=== PATIENT | male | born 1955 | race Caucasian/White ===

== ENCOUNTER 2019-11-30 15:16 | Emergency (ER) | payer MEDICARE, MEDICAID ==
--- NOTE | 2019-11-30 15:28 | EDM.PDOC ---
ED HPI GENERAL MEDICAL PROBLEM - General Chief Complaint: Lower Extremity Injury/Pain Stated Complaint: RIGHT ANKLE INJURY Time Seen by Provider: 11/30/19 15:18 Source of Information: Reports: Patient History Limitations: Reports: No Limitations - History of Present Illness INITIAL COMMENTS - FREE TEXT/NARRATIVE: HISTORY AND PHYSICAL: History of present illness: Patient is a 64-year-old male who presents to the emergency room with complaints of right ankle pain. The states that he was attempting to walk up a stair when his toe caught, causing his ankle to roll and stepped wrong. He has pain to both the medial and lateral ankle. Denies hitting his head or having any loss of consciousness. Denies any other extremity involved. Offers no systemic complaints. Review of systems: As per history of present illness and below otherwise all systems reviewed and negative. Past medical history: As per history of present illness and as reviewed below otherwise nonco ntributory. Surgical history: As per history of present illness and as reviewed below otherwise noncontributory. Social history: See social history for further information Family history: As per history of present illness and as reviewed below otherwise noncontributory. Physical exam: General: Well developed and well nourished 64-year-old male. Alert and oriented. Nontoxic-appearing and in no acute distress. HEENT: Atraumatic, normocephalic, pupils equal and reactive bilaterally, negative for conjunctival pallor or scleral icterus, mucous membranes moist, trachea midline. No drooling or trismus noted. No meningeal signs. No hot potato voice noted. Lungs: Clear to auscultation, breath sounds equal bilaterally. Heart: S1S2, regular rate and rhythm without overt murmur Skin: Intact, warm, dry. No lesions or rashes noted. Extremities: Right lateral medial malleolus pain with palpation, nonweightbearing due to pain. Good flexion and extension of the ankle. He moves all extremities per self without difficulty or deficits, negative for cords or calf pain. Strong pedal pulses bilat. Neurovascular unremarkable. Neuro: Awake, alert, oriented. Cranial nerves II through XII unremarkable. Cerebellum unremarkable. Motor and sensory unremarkable throughout. Exam nonfocal. Notes: Physical examination is within normal limits with the exception of tenderness with palpation of the ankle. No soft tissue swelling, redness or concern of infection/DVT. X-ray shows no acute bony abnormalities. CAM walker boot and crutches for right ankle sprain. Wear for 2-5 days or until follow up with orthopedic provider. Use for comfort and non-weight bearing purposes. Follow-up and supportive care measures were reviewed and discussed. Voices understanding and is agreeable to plan of care. Denies any further questions or concerns at this time. Diagnostics: X-ray Therapeutics: CAM walker boot and crutches Prescription: None Impression: Right ankle sprain Plan: 1. X-ray shows no bony abnormality or fracture. Rest, ice, elevate the affected extremity. Please wear the CAM walker boot as directed. 2. Tylenol and/or Ibuprofen as needed for pain management. 3. Follow up with the Orthopedic provider as we discussed. Return to the ED as needed and as discussed. Definitive disposition and diagnosis as appropriate pending reevaluation and review of above. Onset: Today Right Feet Pain Score (Numeric/FACES): 7 - Related Data Allergies Allergy/AdvReac Type Severity Reaction Status Date / Time No Known Allergies Allergy Verified 11/30/19 16:04 Home Meds: Home Meds . [Unable to Verify Home Med List] 07/13/15 [History] Past Medical History HEENT History: Reports: Allergic Rhinitis Cardiovascular History: Reports: High Cholesterol, Hypertension Gastrointestinal History: Reports: None Psychiatric History: Reports: Developmental Delay - Infectious Disease History Infectious Disease History: Reports: Chicken Pox, Measles, Mumps - Past Surgical History GI Surgical History: Reports: Other (See Below) Social & Family History - Family History Family Medical History: Noncontributory Review of Systems - Review of Systems Review Of Systems: Comprehensive ROS is negative, except as noted in HPI. ED EXAM, GENERAL - Physical Exam Exam: See Below (See dictation) Course - Vital Signs Last Recorded V/S: Last Vital Signs Temp 97.8 F 11/30/19 15:54 Pulse 105 H 11/30/19 15:54 Resp 20 11/30/19 15:54 BP 136/80 11/30/19 15:54 Pulse Ox 95 11/30/19 15:54 - Orders/Labs/Meds Orders: Active Orders 24 hr Category Date Time Status DME for Discharge [COMM] Stat Oth 11/30/19 16:12 Ordered Departure - Departure Time of Disposition: 16:19 Disposition: Home, Self-Care 01 Clinical Impression: Ankle sprain Qualifiers: Encounter type: initial encounter Involved ligament of ankle: unspecified ligament Laterality: right Qualified Code(s): S93.401A - Sprain of unspecified ligament of right ankle, initial encounter - Discharge Information Instructions: Ankle Sprain, [id number] Referrals: Bryan Holly MD [Primary Care Provider] - Forms: ED Department Discharge Additional Instructions: The following information is given to patients seen in the emergency department who are being discharged to home. This information is to outline your options for follow-up care. We provide all patients seen in our emergency department with a follow-up referral. The need for follow-up, as well as the timing and circumstances, are variable depending upon the specifics of your emergency department visit. If you don't have a primary care physician on staff, we will provide you with a referral. We always advise you to contact your personal physician following an emergency department visit to inform them of the circumstance of the visit and for follow-up with them and/or the need for any referrals to a consulting specialist. The emergency department will also refer you to a specialist when appropriate. This referral assures that you have the opportunity for follow-up care with a specialist. All of these measure are taken in an effort to provide you with optimal care, which includes your follow-up. Under all circumstances we always encourage you to contact your private physician who remains a resource for coordinating your care. When calling for follow-up care, please make the office aware that this follow-up is from your recent emergency room visit. If for any reason you are refused follow-up, please contact the [facility] Emergency Department at and asked to speak to the emergency department charge nurse. [facility] [address] [place] [id number] [address] Thank you for choosing the [facility] emergency department in [place] for your medical needs today. It was a pleasure caring for you. You were seen in the emergency department for an ankle injury. 1. X-ray shows no bony abnormality or fracture. Rest, ice, elevate the affected extremity. Please wear the CAM walker boot as directed. 2. Tylenol and/or Ibuprofen as needed for pain management. 3. Follow up with the Orthopedic provider as we discussed. Return to the ED as needed and as discussed. Sepsis Event Note (ED) - Focused Exam Vital Signs: Vital Signs Temp Pulse Resp BP Pulse Ox 11/30/19 15:54 97.8 F 105 H 20 136/80 95 - My Orders Last 24 Hours: My Active Orders 11/30/19 16:12 DME for Discharge [COMM] Stat - Assessment/Plan Last 24 Hours: My Active Orders 11/30/19 16:12 DME for Discharge [COMM] Stat
[2019-11-30 16:01] VITALS: BP 136/80; PULSE 105
--- NOTE | 2019-11-30 16:08 | CR ---
Right ankle: 3 views of the right ankle were obtained. Ankle mortise is symmetric. Lucency is noted within the talar dome off the medial edge most likely relating to old injury. Ankle mortise is symmetric. Small calcification off the lateral ankle compatible with old injury. No acute fracture or other abnormality is seen. Impression: 1. Findings as noted above. 2. No acute bony abnormality is appreciated on 3 view right ankle study. Diagnostic code #2 This report was dictated in MDT
== END 2019-11-30 16:36 | disposition home or self-care (01) ==
LOC: MW.ED 15:16
DX: S93.401A Sprain of unspecified ligament of right ankle, initial encounter (principal); I10 Essential (primary) hypertension; X50.1XXA Overexertion from prolonged static or awkward postures, initial encounter
CPT/HCPCS: 73610-26-RT; 73610-RT; 99282; 99283

== ENCOUNTER 2022-11-22 08:45 | Emergency (ER) | payer MEDICARE, MEDICAID ==
[2022-11-22] MEDS ORDERED: Sodium Chloride 0.9% 10 ML Syringe FLUSH PRN (08:50)
[2022-11-22] MEDS ORDERED: Sodium Chloride 0.9% 2.5 ML Syringe FLUSH PRN (08:50)
[2022-11-22 09:09] LABS: BASOPHILS PERCENT AUTO 0.4 % (0.0-1.5); EOSINOPHILS ABSOLUTE AUTO 0.4 K/uL (0.0-0.7); EOSINOPHILS PERCENT AUTO 5.6 % (0.0-7.0); HEMATOCRIT 47.1 % (36.0-46.0); HEMOGLOBIN 15.8 g/dL (12.0-16.0); LYMPHOCYTES ABSOLUTE AUTO 1.5 K/uL (0.6-2.4); LYMPHOCYTES PERCENT AUTO 20.9 % (16.0-40.0); MEAN CORPUSCULAR HEMOGLOBIN 32.6 pg (27.0-32.0); MEAN CORPUSCULAR HGB CONC 33.5 g/dL (31.0-37.0); MEAN CORPUSCULAR VOLUME 97.3 fL (80.0-98.0); MONOCYTES ABSOLUTE AUTO 0.4 K/uL (0.0-0.8); MONOCYTES PERCENT AUTO 6.3 % (0.0-15.0); NEUTROPHILS ABSOLUTE AUTO 4.7 K/uL (1.4-5.7); NEUTROPHILS PERCENT AUTO 66.8 % (48.0-80.0); NRBC ABSOLUTE 0 K/uL; PLATELET COUNT,PLT 180 K/uL (150-400); RED BLOOD CELL COUNT 4.84 M/uL (4.30-5.90); WHITE BLOOD CELL COUNT,WBC 6.98 K/uL (4.0-11.0)
[2022-11-22 09:36] LABS: ALBUMIN 3.5 g/dL (3.4-5.0); BILIRUBIN TOTAL 0.6 mg/dL (0.2-1.0); CARBON DIOXIDE,CO2 26.6 mmol/L (21.0-32.0); CREATININE 0.9 mg/dL (0.6-1.0); POTASSIUM,K 3.6 mmol/L (3.5-5.1); PROTEIN TOTAL,TP 7.1 g/dL (6.4-8.2)
[2022-11-22 16:24] VITALS: BP 154/100; PULSE 105
== END 2022-11-22 16:30 ==
LOC: MW.ED 08:45 → MERGE 08:45 → MW.ED 16:30
DX: S82.832A Other fracture of upper and lower end of left fibula, initial encounter for closed fracture (principal); I48.91 Unspecified atrial fibrillation; Z79.82 Long term (current) use of aspirin; W19.XXXA Unspecified fall, initial encounter; Y92.009 Unspecified place in unspecified non-institutional (private) residence as the place of occurrence of the external cause
CPT/HCPCS: 29515; 36415; 70450; 72125; 73610; 73630; 80053; 82550; 83735; 84484; 85025; 93005; 96374; 99285; J1953; J3490; J7060; 93010; 99291

== ENCOUNTER 2024-09-10 05:49 | Emergency (ER) | payer MEDICARE, MEDICAID ==
[2024-09-10 06:17] LABS: BASOPHILS ABSOLUTE AUTO 0.03 K/uL (0.00-0.20); BASOPHILS PERCENT AUTO 0.2 % (0.0-1.0); HEMATOCRIT 41.9 % (42.0-52.0); HEMOGLOBIN 14.3 g/dL (14.0-18.0); IMMATURE GRAN ABSOLUTE AUTO 0.15 K/uL (0.00-0.05); IMMATURE GRAN PERCENT AUTO 0.8 % (0.0-0.4); LYMPHOCYTES ABSOLUTE AUTO 0.52 K/uL (1.00-4.80); LYMPHOCYTES PERCENT AUTO 2.7 % (24.0-44.0); MEAN CORPUSCULAR HEMOGLOBIN 33.1 pg (28.0-32.0); MEAN CORPUSCULAR HGB CONC 34.1 g/dL (32.0-36.0); MEAN PLATELET VOLUME 11.3 fL (9.4-12.4); MONOCYTES PERCENT AUTO 5.7 % (0.0-8.0); NEUTROPHILS PERCENT AUTO 90.6 % (41.0-71.0); PLATELET COUNT,PLT 246 K/uL (150-400); RED BLOOD CELL COUNT 4.32 M/uL (4.52-5.90)
[2024-09-10 06:43] LABS: A/G RATIO 0.8 (0.9-1.6); ALBUMIN 3.1 g/dL (3.4-5.0); BILIRUBIN TOTAL 8.3 mg/dL (0.2-1.0); CALCIUM 9.5 mg/dL (8.5-10.1); CARBON DIOXIDE,CO2 21.5 mmol/L (21.0-32.0); CREATININE 1.2 mg/dL (0.8-1.3); EST CRCL DRUG DOSING (CG) 63.77 mL/min; POTASSIUM,K 3.9 mmol/L (3.5-5.1)
[2024-09-10 07:39] LABS: APPEARANCE,URINE SLT CLOUDY; COLOR,URINE YELLOW; GLUCOSE,URINE NEGATIVE (NEGATIVE); KETONES,URINE 15 mg/dL (NEGATIVE); LEUKOCYTE ESTERASE,URINE TRACE (NEGATIVE); NITRITE,URINE POSITIVE (NEGATIVE); OCCULT BLOOD,URINE NEGATIVE (NEGATIVE); PH,URINE 5.5 (5.0-8.0); PROTEIN,URINE 100 mg/dL (NEGATIVE); UROBILINOGEN,URINE >=8.0 EU/dL (<2.0)
[2024-09-10 07:40] LABS: BILIRUBIN,URINE LARGE (NEGATIVE)
[2024-09-10] MEDS: Aspirin 81 MG Tab.Chew PO ONE (08:27)
[2024-09-10] MEDS: cefTRIAXone 1 GM in Water For Injection, Sterile 10 ML IVPUSH ONE (08:28)
[2024-09-10] MEDS: Metoprolol Succinate 50 MG Tab.ER PO ONE (08:28)
[2024-09-10] MEDS: Sodium Chloride 0.9% 500 ML IV SCH (08:29)
[2024-09-10 08:37] LABS: BACTERIA,URINE 3+ (NEGATIVE); EPITHELIAL CELLS,URINE FEW (NONE-FEW); RBC,URINE NONE SEEN (0-2/HPF); WBC,URINE 0-3 (0-5/HPF)
[2024-09-10 08:38] LABS: MUCUS,URINE LIGHT (NONE-MOD)
[2024-09-10 09:11] LABS: LACTIC ACID 2.5 mmol/L (0.4-2.0)
[2024-09-10 11:05] LABS: INR 1.28 (0.86-1.11); PTT,PARTIAL THROMBOPLSTIN TIME 25.4 SEC (23.9-30.7)
[2024-09-10 11:10] VITALS: BP 108/68; PULSE 94
[2024-09-10] MEDS ORDERED: Heparin Sodium 5,000 Units/ML Vial IVPUSH ONE (11:45)
[2024-09-10] MEDS: Heparin Sodium/0.45% NaCl 25,000 UNITS/250 ML BAG IV SCH (11:54)
[2024-09-10] MEDS: Heparin Sodium 5,000 Units/ML Vial IVPUSH ONE (11:54)
== END 2024-09-10 12:16 ==
LOC: MW.ED 05:49
DX: I21.4 Non-ST elevation (NSTEMI) myocardial infarction (principal); K80.21 Calculus of gallbladder without cholecystitis with obstruction; E78.00 Pure hypercholesterolemia, unspecified; I10 Essential (primary) hypertension; Z79.899 Other long term (current) drug therapy
CPT/HCPCS: 36415; 70450; 71045; 74176; 80053; 81001; 82550; 83605; 83690; 84484; 85025; 85610; 85730; 87040; 93005; 96365; 96372; 96376; 99285; A9270; J0696; J1644; J7040; 93010

== ENCOUNTER 2024-12-05 13:24 | Emergency (ER) | payer MEDICARE, MEDICAID ==
[2024-12-05 14:18] LABS: BASOPHILS ABSOLUTE AUTO 0.03 K/uL (0.00-0.20); BASOPHILS PERCENT AUTO 0.3 % (0.0-1.0); EOSINOPHILS ABSOLUTE AUTO 0.09 K/uL (0.00-0.45); EOSINOPHILS PERCENT AUTO 0.8 % (0.0-6.0); IMMATURE GRAN ABSOLUTE AUTO 0.03 K/uL (0.00-0.05); IMMATURE GRAN PERCENT AUTO 0.3 % (0.0-0.4); LYMPHOCYTES ABSOLUTE AUTO 1.22 K/uL (1.00-4.80); LYMPHOCYTES PERCENT AUTO 10.7 % (24.0-44.0); MEAN PLATELET VOLUME 11.6 fL (9.4-12.4); MONOCYTES ABSOLUTE AUTO 1.01 K/uL (0.00-0.80); MONOCYTES PERCENT AUTO 8.9 % (0.0-8.0); NEUTROPHILS ABSOLUTE AUTO 9.02 K/uL (1.80-7.70); NEUTROPHILS PERCENT AUTO 79.0 % (41.0-71.0); NRBC ABSOLUTE 0.00 K/uL (0.00-0.02); NRBC PERCENT 0.0 /100WBC (0.0-0.2); PLATELET COUNT,PLT 163 K/uL (150-400); RED BLOOD CELL COUNT 4.63 M/uL (4.52-5.90); WHITE BLOOD CELL COUNT,WBC 11.40 K/uL (3.9-11.3)
[2024-12-05 14:57] LABS: A/G RATIO 1.1 (0.9-1.6); ALANINE AMINOTRANSFERASE,ALT 22.0 IU/L (14-63); ASPARTATE AMNIOTRANSFERASE,AST 19.0 IU/L (15-37); BILIRUBIN TOTAL 1.8 mg/dL (0.2-1.0); BLOOD UREA NITROGEN,BUN 14.0 mg/dL (7.0-18.0); CARBON DIOXIDE,CO2 25.3 mmol/L (21.0-32.0); CHLORIDE,CL 103.0 mmol/L (98-107); CREATININE 0.9 mg/dL (0.8-1.3); EST CRCL DRUG DOSING (CG) 68.92 mL/min; GLUCOSE RANDOM 100.0 mg/dL (74-106); POTASSIUM,K 3.5 mmol/L (3.5-5.1); PROTEIN TOTAL,TP 6.6 g/dL (6.4-8.2); SODIUM,NA 138.0 mmol/L (136-148)
[2024-12-05 15:03] LABS: ESTIMATED GFR 92.0 mL/min (>60)
[2024-12-05 16:00] VITALS: BP 138/88; PULSE 101
== END 2024-12-05 15:59 | disposition home or self-care (01) ==
LOC: MW.ED 13:24
DX: S00.81XA Abrasion of other part of head, initial encounter (principal); Z79.899 Other long term (current) drug therapy; I10 Essential (primary) hypertension; E78.00 Pure hypercholesterolemia, unspecified; X58.XXXA Exposure to other specified factors, initial encounter
CPT/HCPCS: 36415; 70450; 72125; 80053; 83735; 84484; 85025; 96360; 99284; J7030; 99283